=== PATIENT | female | born 1995 | race Caucasian/White ===

== ENCOUNTER 2016-06-05 18:07 | Emergency (ER) | payer OTHER ==
--- NOTE | 2016-06-05 18:30 | ER Document Report ---
ED General - General Chief Complaint: Sunburn Stated Complaint: SUNBURN W/BLISTERS Mode of Arrival: Ambulatory Information source: Patient Notes: Patient is a 20-year-old female who presents with sunburn to arms, chest and both legs. She endorses a few blisters to her right shoulder. She states she was in the sun yesterday for 3-4 hours with only one application of sunscreen, SPF 30. She endorses some nausea and chills this morning which has since resolved. Denies any fever, headache, dizziness, difficulty breathing, vomiting. She took some ibuprofen this morning which did provide relief. TRAVEL OUTSIDE OF THE [place] IN LAST 30 DAYS: No - Related Data Allergies/Adverse Reactions: No Known Allergies Allergy (Verified 06/05/16 18:30) Past Medical History - General Information source: Patient - Social History Smoking Status: Never Smoker Family History: Reviewed & Not Pertinent Patient has suicidal ideation: No Patient has homicidal ideation: No Renal/ Medical History: Denies: Hx Peritoneal Dialysis - Immunizations Immunizations up to date: Yes Review of Systems - Review of Systems Constitutional: See HPI EENT: No symptoms reported Cardiovascular: No symptoms reported Respiratory: No symptoms reported Gastrointestinal: No symptoms reported Genitourinary: No symptoms reported Female Genitourinary: No symptoms reported Musculoskeletal: No symptoms reported Skin: See HPI Hematologic/Lymphatic: No symptoms reported Neurological/Psychological: No symptoms reported Physical Exam - Vital signs Vitals: Temp Pulse Resp BP Pulse Ox 98.2 F 85 16 129/67 H 100 06/05/16 18:15 06/05/16 18:15 06/05/16 18:15 06/05/16 18:15 06/05/16 18:15 - Notes Notes: PHYSICAL EXAM: CONSTITUTIONAL: Alert and oriented, well-appearing and in no acute distress. HENT: Normocephalic, atraumatic. Moist mucous membranes. EYES: Pupils equal round and reactive to light, EOM intact. Sclera anicteric, conjunctiva are normal. No entrapment. NECK: supple without lymphadenopathy. ROM intact. HEART: Regular rate and rhythm without murmurs. LUNGS: CTAB and equal. No wheezes, rales or rhonchi. EXTREMITIES: Normal range of motion, no pitting edema. No cyanosis. Cap Refill < 3 seconds. SKIN: Warm and dry. Normal turgor. No rashes or lesions noted. Diffuse painful erythema to bilateral arms, upper chest and lower extremities. A few small scattered blisters to right lateral shoulder with no weeping. Course - Re-evaluation Re-evalutation: 06/05/16 18:53 Patient seen and examined. NO respiratory distress, difficulty breathing. Low concern for heat stroke - patient alert and oriented. Exam consistent with generalized sunburn with blistering that indicates superficial partial- thickness involvement. Given dose of ibuprofen here and will prescribe topical silver sulfadiazine to apply to the blister. Stressed the importance of staying hydrated and drinking plenty of water. At this time, will discharge with return precautions and follow-up recommendations. Verbal discharge instructions given at the bedside and opportunity for questions given. Medication warnings reviewed. Patient is in agreement with this plan and has verbalized understanding of return precautions and the need for primary care follow-up in the next 24-72 hours. - Vital Signs Vital signs: Temp Pulse Resp BP Pulse Ox 98.2 F 85 16 129/67 H 100 06/05/16 18:15 06/05/16 18:15 06/05/16 18:15 06/05/16 18:15 06/05/16 18:15 Discharge - Discharge Clinical Impression: Sunburn of first degree, Sunburn, blistering Condition: Stable Disposition: HOME, SELF-CARE Instructions: Silvadene Cream ([facility]), Flores ([facility]) Additional Instructions: Apply the silvadene cream only to the blisters. Apply to a thickness of 1/16 inch once or twice daily; reapply as needed to areas where the cream is removed by patient activity as the burned area should be covered with cream at all times. Continue use until healing has occurred You can use cocoa butter or aloe vera gel to the remainder of your sunburn. You will need to stay hydrated and drink plenty of water. Follow-Up Care Although no definite follow-up visit has been scheduled for you, you should return if there is unexpected worsening or a significant change in your symptoms. Prescriptions: Silver Sulfadiazine [Silvadene 1% Cream 50 gm Tube] 1 applic TP BID #50 grams
[2016-06-05] MEDS ORDERED: IBUPROFEN 600 MG TABLET PO ONE (18:36)
[2016-06-05 19:11] VITALS: BP 124/69
== END 2016-06-05 19:10 | disposition home or self-care (01) ==
LOC: ER 18:07
DX: L55.0 Sunburn of first degree (principal); R11.0 Nausea
CPT/HCPCS: 99282

== ENCOUNTER 2017-03-07 18:54 | Emergency (ER) | payer OTHER ==
[2017-03-07 19:55] LABS: APPEARANCE,URINE CLEAR; BILIRUBIN,URINE NEGATIVE (NEGATIVE); COLOR,URINE YELLOW; GLUCOSE, URINE NEGATIVE (NEGATIVE); KETONES,URINE TRACE mg/dL (NEGATIVE); LEUKOCYTE ESTERASE,URINE NEGATIVE (NEGATIVE); NITRITE,URINE NEGATIVE (NEGATIVE); PROTEIN,URINE NEGATIVE (NEGATIVE); URINE SPECIFIC GRAVITY 1.019
[2017-03-07] MEDS ORDERED: IBUPROFEN 800 MG TABLET PO ONE (19:58)
[2017-03-07] MEDS ORDERED: GUAIFENESIN 600 MG TABLET.SA PO ONE (19:58)
[2017-03-07] MEDS ORDERED: LORATADINE 10 MG TABLET PO ONE (19:58)
[2017-03-07] MEDS ORDERED: PSEUDOEPHEDRINE HCL 30 MG TABLET PO ONE (19:58)
[2017-03-07] MEDS ORDERED: ONDANSETRON 4 MG TAB.RAPDIS PO ONE (20:01)
--- NOTE | 2017-03-07 20:06 | ER Document Report ---
ED ENT - General Chief Complaint: Sore Throat Stated Complaint: ABDOMINAL PAIN,SORE THROAT Time Seen by Provider: 03/07/17 19:20 Mode of Arrival: Ambulatory Information source: Patient TRAVEL OUTSIDE OF THE [place] IN LAST 30 DAYS: No - Related Data Allergies/Adverse Reactions: No Known Allergies Allergy (Verified 03/07/17 18:55) Past Medical History - General Information source: Patient - Social History Smoking Status: Never Smoker Cigarette use (# per day): No Chew tobacco use (# tins/day): No Smoking Education Provided: No Frequency of alcohol use: None Drug Abuse: None Occupation: Client Success Director Lives with: Spouse/Significant other Family History: CVA, DM, Hyperlipidemia, Hypertension. denies: Arthritis, CAD, COPD, Malignancy, Thyroid Disfunction Patient has suicidal ideation: No Patient has homicidal ideation: No - Past Medical History Cardiac Medical History: Reports: None Pulmonary Medical History: Reports: None EENT Medical History: Reports: None Neurological Medical History: Reports: None Endocrine Medical History: Reports: None Renal/ Medical History: Reports: None Malignancy Medical History: Reports: None GI Medical History: Reports: None Musculoskeltal Medical History: Reports None Skin Medical History: Reports None Psychiatric Medical History: Reports: None Traumatic Medical History: Reports: None Infectious Medical History: Reports: None Surgical Hx: Negative Past Surgical History: Reports: None - Immunizations Immunizations up to date: Yes Hx Diphtheria, Pertussis, Tetanus Vaccination: Yes Review of Systems - Review of Systems Constitutional: Chills, Fever, Recent illness EENT: Nose congestion, Nose discharge, Sinus discharge, Throat pain Cardiovascular: No symptoms reported Respiratory: Cough. denies: Short of breath, Wheezing Gastrointestinal: Diarrhea, Nausea. denies: Vomiting Genitourinary: No symptoms reported Female Genitourinary: No symptoms reported Musculoskeletal: No symptoms reported Skin: No symptoms reported Hematologic/Lymphatic: No symptoms reported Neurological/Psychological: No symptoms reported -: Yes All other systems reviewed and negative Physical Exam - Vital signs Vitals: Temp Pulse Resp BP Pulse Ox 98.0 F 77 18 134/72 H 99 03/07/17 18:58 03/07/17 18:58 03/07/17 18:58 03/07/17 18:58 03/07/17 18:58 Interpretation: Normal - General General appearance: Appears well, Alert - HEENT Head: Normocephalic, Atraumatic Eyes: Normal Pupils: PERRL Ears: Normal External canal: Normal Tympanic membrane: Normal Sinus: Normal Nasal: Purulent discharge, Swelling Mouth/Lips: Normal Pharynx: Post nasal drainage. No: Erythema, Exudate, Peritonsillar abscess, Retropharyngeal abscess, Tonsillar hypertrophy, Uvular edema, Potential airway comprom. Neck: Normal - Respiratory Respiratory status: No respiratory distress Chest status: Nontender Breath sounds: Normal Chest palpation: Normal - Cardiovascular Rhythm: Regular Heart sounds: Normal auscultation Murmur: No - Abdominal Inspection: Normal Distension: No distension Bowel sounds: Normal Tenderness: Nontender. No: Tender Organomegaly: No organomegaly Notes: She states she is getting ready to start her cycle. She states she has started breaking out on her face and she has the abdominal cramps like she always does before she starts her period. - Back Back: Normal, Nontender - Extremities General upper extremity: Normal inspection, Nontender, Normal color, Normal ROM , Normal temperature General lower extremity: Normal inspection, Nontender, Normal color, Normal ROM , Normal temperature, Normal weight bearing. No: Eli's sign - Neurological Neuro grossly intact: Yes Cognition: Normal Orientation: AAOx4 Link Coma Scale Eye Opening: Spontaneous [place] Coma Scale Verbal: Oriented Link Coma Scale Motor: Obeys Commands [place] Coma Scale Total: 15 Speech: Normal Motor strength normal: LUE, RUE, LLE, RLE Sensory: Normal - Psychological Associated symptoms: Normal affect, Normal mood - Skin Skin Temperature: Warm Skin Moisture: Dry Skin Color: Normal Course - Re-evaluation Re-evalutation: 03/07/17 20:12 Patient treated with Claritin and Sudafed Mucinex ibuprofen for her cough cold congestion symptoms and she was treated with Zofran for her nausea. Patient was discharged home with a prescription for the Zofran for her nausea. Patient instructed to follow-up with her primary doctor. - Vital Signs Vital signs: Temp Pulse Resp BP Pulse Ox 98.0 F 77 18 134/72 H 99 03/07/17 18:58 03/07/17 18:58 03/07/17 18:58 03/07/17 18:58 03/07/17 18:58 - Laboratory Laboratory results interpreted by me: 03/07/17 19:44 Urine Ketones TRACE H Urine Urobilinogen 2.0 H Urine Ascorbic Acid 40 H Discharge - Discharge Clinical Impression: Viral syndrome, Sore throat (viral), Nausea HTN (hypertension) Qualifiers: Hypertension type: unspecified Qualified Code(s): I10 - Essential (primary) hypertension Condition: Stable Disposition: HOME, SELF-CARE Instructions: Family Physicians / Practices Additional Instructions: Viral Syndrome The physician has diagnosed a viral infection. Viruses not only cause "colds," but can cause many different symptoms including generalized aching, fever, headache, cough, diarrhea, nausea, vomiting, and fatigue. The treatment, for the most part, is simply relief of symptoms. This means that antibiotics are usually not given. Rest, fluids, pain medications and, occasionally, medication for the specific symptoms that are most bothersome will be prescribed. Use good handwashing to avoid passing the virus to others. Shared toys should be cleaned with disinfectant. Clean the toilets, sinks, and counter surfaces in bathrooms. Launder clothing in hot water. Contact the physician if you develop any new or unusual symptoms such as severe headache, stiff neck, high fever, chest pain, productive cough, or shortness of breath. You should be rechecked if you don't see marked improvement within seven to 10 days. SORE THROAT: Sore throats may be caused by viruses, bacteria, or fungi. Most are due to a virus, and must get better on their own. Bacterial sore throats, particularly those due to "strep," need treatment with antibiotics. If an antibiotic is prescribed, be sure to take the medication for a full 10 days. Failure to take the antibiotic can result in complications such as rheumatic fever. Sometimes, an injection of antibiotics is given instead of pills or liquid. This single "shot" is equal in effectiveness to the oral medication. To relieve symptoms, take acetaminophen for pain. Sip clear liquids frequently, or eat popsicles or ice chips. Anesthetic sprays or lozenges may help. Make sure the air in the room is not too dry. Avoid using decongestants or antihistamines. Call the doctor if there is no improvement in two days, or if you have difficulty breathing, increasing throat pain, high fever, rash, or frequent vomiting. Antinausea Medication You have been given a medication to suppress nausea and vomiting. This type of medication can be given as a shot, pill, or suppository. It will usually last for many hours. Pills and shots usually last six to eight hours, suppositories last about 12 hours. For the typical illness, only one or two doses of the medication may be necessary. Mild lightheadedness may occur. This type of medicine can cause drowsiness. Do not drive or operate dangerous machinery while under its influence. Do not mix with alcohol. See your doctor at once if you have muscle spasms or tightness, or uncontrollable motions (particularly of the neck, mouth, or jaw). Persistent vomiting or severe lightheadedness should also be evaluated by the physician. You will treated with snacks and ibuprofen for your viral symptoms today in the emergency room you also treated with Zofran for your nausea. Another recommendation is Flonase which you can buy [id number] you would use 2 sprays each nostril twice a day. Salt and soda solution 1 quart of water 1 tablespoon of salt 1 teaspoon of baking soda Mixed 3 ingredients together and boil for 1 minute Placed in a covered quart jar Use 1/2 ounce of cold solution to gargle 3 times a day Brat diet may help you with your nausea vomiting and diarrhea a brat diet is bananas rice applesauce and toast. Please increase your p.o. fluids. Please stay away from dairy products until your nausea vomiting and diarrhea have improved. FOLLOW-UP CARE: If you have been referred to a physician for follow-up care, call the physician s office for an appointment as you were instructed or within the next two days. If you experience worsening or a significant change in your symptoms, notify the physician immediately or return to the Emergency Department at any time for re-evaluation. Prescriptions: Ondansetron [Zofran Odt 4 mg Tablet] 1 tab PO Q6H #10 tab.rapdis Forms: Return to Work, Elevated Blood Pressure
[2017-03-07 20:32] VITALS: BP 115/64
== END 2017-03-07 20:31 | disposition home or self-care (01) ==
LOC: ER 18:54
DX: J02.8 Acute pharyngitis due to other specified organisms (principal); B97.89 Other viral agents as the cause of diseases classified elsewhere; I10 Essential (primary) hypertension; R50.9 Fever, unspecified; R09.81 Nasal congestion; R05 Cough; R19.7 Diarrhea, unspecified; R11.0 Nausea; R09.82 Postnasal drip
CPT/HCPCS: 99283; 81025; 81001; S0119